=== PATIENT | male | born 1945 | race Caucasian/White ===

== ENCOUNTER 2017-09-28 11:50 | Day surgery (SDC) | payer OTHER, BC ==
--- OUTSIDE RECORDS SUMMARY | 2017-09-28 12:02 | XMS REPORT | Clinical Summary ---
:1945 Author Organization [facility] Address [address] [place] [address] Care Team Providers Name Role Phone Augusto Mcleod MD Primary Care Provider Allergies No Known Allergies Current Medications Prescription Sig. Disp. Refills Start Date End Date Status telmisartan-hydrochlor Take 1 tablet by 1 12/26/2016 Active othiazid (MICARDIS mouth once daily. HCT) 80-12.5 mg per tablet amLODIPine (NORVASC) Take 10 mg by mouth Active 10 mg tablet daily. metFORMIN (GLUCOPHAGE) Take 1,000 mg by Active 1,000 mg tablet mouth 2 (two) times a day with meals. lansoprazole Take 15 mg by mouth Active (PREVACID) 15 MG daily. capsule NAPROXEN SODIUM (ALEVE Take by mouth. Active ORAL) taurine 1,000 mg Take by mouth. Active capsule multivitamin Take 1 tablet by Active (THERAGRAN) tablet mouth daily. cetirizine (ZyrTEC) 10 Take 10 mg by mouth Active MG tablet daily. simvastatin (ZOCOR) 20 Take 1 tablet (20 30 tablet 6 01/13/2017 Active MG tabletIndications: mg total) by mouth Essential nightly. hypertension, Coronary arteriosclerosis amLODIPine (NORVASC) 5 Take 5 mg by mouth 0 06/07/2017 Active mg tablet daily. bacitracin ophthalmic APPLY TO THE 0 06/23/2017 Active ointment AFFECTED EYELIDS TOPICALLY AT BEDTIME DIRECTED FOR ONE WEEK VICTOZA 3-BRICE 0.6 INJECT 1.8 MG 3 05/26/2017 Active mg/0.1 mL (18 mg/3 mL) SUBCUTANEOUSLY pen injector EVERY DAY DIRECTED irbesartan-hydrochloro Take 1 tablet by 1 08/28/2017 Active thiazide (AVALIDE) mouth daily. 300-12.5 mg per tablet Active Problems Problem Noted Date Stented coronary artery 01/13/2017 Coronary arteriosclerosis 01/13/2017 Essential hypertension 01/13/2017 Claudication 01/13/2017 Trigger ring finger of left hand 06/10/2016 Tendinitis of finger 06/10/2016 Trigger little finger of left hand 06/10/2016 Encounters Date Type Specialty Care Team Description 09/23/2017 Office Visit General Surgery Audrey Uribe Encounter for screening colonoscopy (Primary Dx); MD Edson Pruritus ani 09/15/2017 Procedure visit Urology Antonio Hill Erectile dysfunction, unspecified erectile dysfunction type 09/04/2017 Hospital Encounter Radiology Antonio Hill Orchalgia 08/31/2017 Transcribe Orders Access Antonio Hill, Orchialgia (Primary MD Dx) 08/27/2017 Lab Lab [facility] Hill, BPH with obstruction/lower urinary tract symptoms (Primary Dx); Nodular prostate with urinary obstruction 08/27/2017 Office Visit Urology Antonio Hill, BPH with obstruction/lower urinary tract symptoms (Primary Dx); Erectile dysfunction, unspecified erectile dysfunction type; Orchalgia; Polyp of colon, unspecified part of colon, unspecified type 01/13/2017 Office Visit Cardiology Milla Reardon, Claudication (Primary Dx); Essential hypertension; Coronary arteriosclerosis; Stented coronary artery after 09/27/2016 Family History Medical History Relation Name Comments Heart disease Father Hero Mao Hypertension Father Hero Mao Relation Name Status Comments Father Hero Mao Social History Tobacco Use Types Packs/Day Years Used Date Never Smoker Smokeless Tobacco: Never Used Alcohol Use Drinks/Week oz/Week Comments Yes 1 Cans of beer Sex Assigned at Date Recorded Not on file Last Filed Vital Signs Vital Sign Reading Time Taken Blood Pressure 143/67 09/23/2017 3:25 PM CDT Pulse 79 09/23/2017 3:25 PM CDT Temperature - - Respiratory Rate - - Oxygen Saturation 98% 09/23/2017 3:25 PM CDT Inhaled Oxygen Concentration - - Weight 94.8 kg (209 lb) 09/23/2017 3:25 PM CDT Height 175.3 cm (5' 9") 09/23/2017 3:25 PM CDT Body Mass Index 30.86 09/23/2017 3:25 PM CDT Plan of Treatment Date Type Specialty Care Team Description 10/22/2017 Procedure visit Urology Antonio Hill MD [address] [facility] [address] [place] [address] Health Maintenance Due Date Last Done Comments COLONOSCOPY 1996 SHINGRIX VACCINE (#1) 1996 ZOSTER VACCINE 2006 PNEUMOCOCCAL POLYSACCHARIDE VACCINE AGE 65 AND OVER 2011 PNEUMOCOCCAL-13 2011 INFLUENZA VACCINE 12/23/2017 Results Penile Duplex Scan (09/15/2017 11:16 AM) Specimen Performing Laboratory [place] [address] Narrative Penile U/S and doppler study Diagnosis:Erectile dysfunction Peyronie's plaque present on exam: absent Medication Trimix 0.25 mL. left corpus cavernosa/ time of injection 10:15 am Quality of erection @ 10 minutes 30%,@15 minutes 40%. Adequate for intercourse no Right CA diameter 5 mm. @ 10 minutes/ 7 mm. @ 15 minutes (ref: range of>7mm) Left CA diameter 7 mm@ 10 minutes / 8 mm. @ 15 minutes (ref: range of>7mm Right PSV 10 min 24.0 cm /s @ 15 minutes 22.9 cm /s (ref:>25 - 30 cm /s) Left PSV 10 min 17.6 cm /s@ 15 mint 19.7cm /s (ref:>25 - 30cm /s) RightResistive index65%(reference range of greater 90%) Left Resistive index76% (reference range of greater 90%) Right CA pulsatile yes Left CA pulsatile yes Parameters within reference range: no Systolic velocities below reference range on Bilateral Resistive indices below reference range onBilateral Persistent diastolic flowBilateral Cavernosal dilatation normal reference range on Bilateral Rigidity after injection: Rigidity 10 minutes after injection :none Rigidity 15 minutes after injectiongrade 1 Rigidity after stimulation: : grade 1 Comments: Bilateral venous leak , bilateral arterial insufficiency and very small multi focal calcification of Right corpus cavernosa is identified No curvature is identified . US Scrotal (09/04/2017 3:00 PM) Specimen Performing Laboratory [facility] [address] [place] [address] Narrative EXAMINATION: US SCROTAL CLINICAL HISTORY: N50.819 Testicular painunspecified, orchalgia COMPARISON: None. TECHNIQUE: Multiple grayscale, color Doppler and spectral Doppler sonographic images were obtained of the scrotum and its contents. FINDINGS: The testes are normal in size, shape and echotexture, with the right measuring 3.8 x 1.9 x 5.5 cm, and the left, 4.9 x 2.2 x 3.8 cm. Blood flow is symmetrical. 2 cysts are in the right epididymis, the larger, 12-18 mm. Minimal focal calcification is in the posterior scrotal wall, adjacent to the testis. IMPRESSION: Examination is within normal limits.. [id number] Procedure Note Interface, Radiology Results Incoming - 09/07/2017 10:57 AM CDT EXAMINATION: US SCROTAL CLINICAL HISTORY: N50.819 Testicular pain unspecified, orchalgia COMPARISON: None. TECHNIQUE: Multiple grayscale, color Doppler and spectral Doppler sonographic images were obtained of the scrotum and its contents. FINDINGS: The testes are normal in size, shape and echotexture, with the right measuring 3.8 x 1.9 x 5.5 cm, and the left, 4.9 x 2.2 x 3.8 cm. Blood flow is symmetrical. 2 cysts are in the right epididymis, the larger, 12-18 mm. Minimal focal calcification is in the posterior scrotal wall, adjacent to the testis. IMPRESSION: Examination is within normal limits.. [id number] CBC with platelet and differential (08/27/2017 10:48 AM) Component Value Ref Range WBC 5.5 3.4 - 10.8 x10E3/uL RBC 4.24 4.14 - 5.80 x10E6/uL HGB 13.5 13.0 - 17.7 g/dL HCT 38.0 37.5 - 51.0 % MCV 90 79 - 97 fL MCH 31.8 26.6 - 33.0 pg MCHC 35.5 31.5 - 35.7 g/dL RDW 15.1 12.3 - 15.4 % Platelet count 190 150 - 379 x10E3/uL Neutrophils 59 Not Estab. % Lymphocytes 33 Not Estab. % Monocytes 4 Not Estab. % Eosinophils 3 Not Estab. % Basophils 1 Not Estab. % Neutrophils, absolute 3.2 1.4 - 7.0 x10E3/uL Lymphocytes, absolute 1.8 0.7 - 3.1 x10E3/uL Monocytes, absolute 0.2 0.1 - 0.9 x10E3/uL Eosinophils, absolute 0.2 0.0 - 0.4 x10E3/uL Basophils, absolute 0.0 0.0 - 0.2 x10E3/uL Immature granulocytes 0 Not Estab. % Immature grans (abs) 0.0 0.0 - 0.1 x10E3/uL Specimen Performing Laboratory [facility] Narrative Performed at:[address] [place], [place] [id number] Application Integration Specialist: Adolph Walker MD, Phone:[phone] Testosterone (08/27/2017 10:48 AM) Component Value Ref Range Testosterone 211 (L) 264 - 916 ng/dL Comment: Adult male reference interval is based on a population of healthy nonobese males (BMI <30) between 19 and 39 years old. Claudia et.al. JCEM 2017,102;6553-5781. PMID: [id number]. Specimen Performing Laboratory [facility] Narrative Performed at:[address] [place], [place] [id number] Application Integration Specialist: Adolph Walker MD, Phone:[phone] Prostate specific antigen (08/27/2017 10:48 AM) Component Value Ref Range PSA 1.1 0.0 - 4.0 ng/mL Comment: Lois ECLIA methodology. According to the [place] [employer], Serum PSA should decrease and remain at undetectable levels after radical prostatectomy. The AUA defines biochemical recurrence as an initial PSA value 0.2 ng/mL or greater followed by a subsequent confirmatory PSA value 0.2 ng/mL or greater. Values obtained with different assay methods or kits cannot be used interchangeably. Results cannot be interpreted as absolute evidence of the presence or absence of malignant disease. Specimen Performing Laboratory [facility] Narrative Performed at:[address] [place], [place] [id number] Application Integration Specialist: Adolph Walker MD, Phone:[phone] Pv duplex arterial lower extremity (02/05/2017 3:07 PM) Specimen Performing Laboratory [facility] [address] [place] [address] Narrative [facility] Lower Extremity Arterial Report Pat.Name:Jean Pierre MAO.ID:[id number] .Date: 02/05/2017 Refer.MD:MILLA REARDON MD Exam Time: 2:22:00 PMStudy Type:LE Arterial DOBAge:1945,71YSex: MALE Sonogrphr: Jeimy Manuel, MARI, RDCS, RVT Pat. Stat.:Outpatient Room:[place] [address]: [id number] Echo Event ID:[id number] Order ID:[id number] Reason for Study:Weak pulse Race:C SUMMARY: Duplex scan of the BILATERAL lower extremities demonstrates no evidence of hemodynamically significant stenosis. Doppler flow is triphasic. There is no evidence of atherosclerotic plaque. FINDINGS:Duplex ultrasound was performed of the major arteries of the bilateral lower extremities.All vessels are patent and with triphasic Doppler flow and normal velocities.There are no areas of significantly increased velocity or luminal abnormalities. IMPRESSION:No evidence of hemodynamically significant arterial disease in thebilateral lower extremities. Doppler Waveforms: RightLeft Common Fem TriphasicTriphasic Superficial FemTriphasicTriphasic PoplitealTriphasic Triphasic Posterior Tibial TriphasicTriphasic Dorsalis Pedis TriphasicTriphasic Anterior TibialTriphasicTriphasic MEASUREMENTS: DOPPLER SENIOR PRODUCT CONSULTANT Right SENIOR PRODUCT CONSULTANT Angul60 deg Right Profunda Profunda PSV84.2 cm/sProfunda EDV 0 cm /s Profunda Right Profunda 60 deg Right SFA Dist SFA Dist PSV 101 cm/sSFA Dist EDV 0 cm /s Right SFA Mid SFA Mid PSV 97.9 cm/sSFA Mid EDV0 cm/s Right SFA Prox SFA Prox PSV99.6 cm/sSFA Prox EDV 0 cm /s Right Pop Dist Pop Dist PSV77.9 cm/sPop Dist EDV 0 cm /s Right Pop Prox Pop Prox PSV78.3 cm/sPop Prox EDV 0 cm /s Right WINDOWS SERVER SUPPORT TECHNICIAN Prox WINDOWS SERVER SUPPORT TECHNICIAN Prox PSV51.1 cm/sPTA Prox PSV72 cm /s WINDOWS SERVER SUPPORT TECHNICIAN Prox EDV2.13 cm/s Right WINDOWS SERVER SUPPORT TECHNICIAN Dist WINDOWS SERVER SUPPORT TECHNICIAN Dist PSV62.7 cm/s Right WINDOWS SERVER SUPPORT TECHNICIAN Mid WINDOWS SERVER SUPPORT TECHNICIAN Mid PSV 75 cm/sPTA Mid EDV 0 cm/s Right Peroneal Prox Peroneal Prox P 131 cm/s Right DPA DPA PSV 67.4 cm/s Left Profunda Profunda PSV62.7 cm/sProfunda EDV 0 cm /s Left SFA Dist SFA Dist PSV 116 cm/sSFA Dist EDV 0 cm /s Left SFA Mid SFA Mid TON698 cm/sSFA Mid EDV 0 cm/s Left SFA Prox SFA Prox PSV90.5 cm/sSFA Prox EDV 0 cm /s Left Pop Dist Pop Dist PSV70.2 cm/s Popliteal Left Popliteal 10.4 cm/s Left Popliteal0 cm/s Left Pop Prox Pop Prox PSV66.5 cm/sPop Prox PSV66 cm /s Left EDITA Prox EDITA Prox PSV44.9 cm/sATA Prox PSV44 cm /s Tibial Art Left Tibial Art 0 cm/s Left WINDOWS SERVER SUPPORT TECHNICIAN Dist WINDOWS SERVER SUPPORT TECHNICIAN Dist PSV65.5 cm/s Tibial Post Left Tibial Pos 0 cm/s Left Tibial Pos 0 cm/s Left WINDOWS SERVER SUPPORT TECHNICIAN Mid WINDOWS SERVER SUPPORT TECHNICIAN Mid PSV 76.4 cm/sPTA Mid EDV0 cm/s Left WINDOWS SERVER SUPPORT TECHNICIAN Prox WINDOWS SERVER SUPPORT TECHNICIAN Prox PSV74.6 cm/s Left Peroneal Prox Peroneal Prox P82.6 cm/s Dors Pedis Left Dors Pedis91.4 cm/s Left Dors Pedis59 deg Right SENIOR PRODUCT CONSULTANT Prox SENIOR PRODUCT CONSULTANT Prox PSV 109 cm/sCFA Prox EDV 0 cm /s Right EIA Dist EIA Dist PSV 108 cm/sEIA Dist EDV 0 cm /s Right EDITA Prox EDITA Prox PSV51 cm/s Left EIA Dist EIA Dist PSV89 cm/sEIA Dist EDV 0 cm/s EIA Dist PSV89 cm/s Left SENIOR PRODUCT CONSULTANT Prox SENIOR PRODUCT CONSULTANT Prox PSV93 cm/sCFA Prox EDV 0 cm/s Left DPA DPA PSV 91 cm/s Signed 02/08/2017 10:08 AM Milla Reardon MD Procedure Note Interface, Radiology Results In - 02/08/2017 10:08 AM CDT [facility] Lower Extremity Arterial Report Pat.Name: PHUC MAO Pat.ID: [id number] .Date: 02/05/2017 Refer.MD: MILLA REARDON MD Exam Time: 2:22:00 PM Study Type:LE Arterial Age: 11 1945,71Y Sex: MALE Sonogrphr: Jeimy Manuel RDMS, RDCS, RVT Pat. Stat.:Outpatient Room: [facility] 4: [id number] Echo Event ID:[id number] Order ID: [id number] Reason for Study:Weak pulse Race: C SUMMARY: Duplex scan of the BILATERAL lower extremities demonstrates no evidence of hemodynamically significant stenosis. Doppler flow is triphasic. There is no evidence of atherosclerotic plaque. FINDINGS: Duplex ultrasound was performed of the major arteries of the bilateral lower extremities. All vessels are patent and with triphasic Doppler flow and normal velocities. There are no areas of significantly increased velocity or luminal abnormalities. IMPRESSION: No evidence of hemodynamically significant arterial disease in the bilateral lower extremities. Doppler Waveforms: Right Left Common Fem Triphasic Triphasic Superficial Fem Triphasic Triphasic Popliteal Triphasic Triphasic Posterior Tibial Triphasic Triphasic Dorsalis Pedis Triphasic Triphasic Anterior Tibial Triphasic Triphasic MEASUREMENTS: DOPPLER SENIOR PRODUCT CONSULTANT Right SENIOR PRODUCT CONSULTANT Angul 60 deg Right Profunda Profunda PSV 84.2 cm/s Profunda EDV 0 cm/s Profunda Right Profunda 60 deg Right SFA Dist SFA Dist PSV 101 cm/s SFA Dist EDV 0 cm/s Right SFA Mid SFA Mid PSV 97.9 cm/s SFA Mid EDV 0 cm/s Right SFA Prox SFA Prox PSV 99.6 cm/s SFA Prox EDV 0 cm/s Right Pop Dist Pop Dist PSV 77.9 cm/s Pop Dist EDV 0 cm/s Right Pop Prox Pop Prox PSV 78.3 cm/s Pop Prox EDV 0 cm/s Right WINDOWS SERVER SUPPORT TECHNICIAN Prox WINDOWS SERVER SUPPORT TECHNICIAN Prox PSV 51.1 cm/s WINDOWS SERVER SUPPORT TECHNICIAN Prox PSV 72 cm/s WINDOWS SERVER SUPPORT TECHNICIAN Prox EDV 2.13 cm/s Right WINDOWS SERVER SUPPORT TECHNICIAN Dist WINDOWS SERVER SUPPORT TECHNICIAN Dist PSV 62.7 cm/s Right WINDOWS SERVER SUPPORT TECHNICIAN Mid WINDOWS SERVER SUPPORT TECHNICIAN Mid PSV 75 cm/s WINDOWS SERVER SUPPORT TECHNICIAN Mid EDV 0 cm/s Right Peroneal Prox Peroneal Prox P 131 cm/s Right DPA DPA PSV 67.4 cm/s Left Profunda Profunda PSV 62.7 cm/s Profunda EDV 0 cm/s Left SFA Dist SFA Dist PSV 116 cm/s SFA Dist EDV 0 cm/s Left SFA Mid SFA Mid PSV 103 cm/s SFA Mid EDV 0 cm/s Left SFA Prox SFA Prox PSV 90.5 cm/s SFA Prox EDV 0 cm/s Left Pop Dist Pop Dist PSV 70.2 cm/s Popliteal Left Popliteal 10.4 cm/s Left Popliteal 0 cm/s Left Pop Prox Pop Prox PSV 66.5 cm/s Pop Prox PSV 66 cm/s Left EDITA Prox EDITA Prox PSV 44.9 cm/s EDITA Prox PSV 44 cm/s Tibial Art Left Tibial Art 0 cm/s Left WINDOWS SERVER SUPPORT TECHNICIAN Dist WINDOWS SERVER SUPPORT TECHNICIAN Dist PSV 65.5 cm/s Tibial Post Left Tibial Pos 0 cm/s Left Tibial Pos 0 cm/s Left WINDOWS SERVER SUPPORT TECHNICIAN Mid WINDOWS SERVER SUPPORT TECHNICIAN Mid PSV 76.4 cm/s WINDOWS SERVER SUPPORT TECHNICIAN Mid EDV 0 cm/s Left WINDOWS SERVER SUPPORT TECHNICIAN Prox WINDOWS SERVER SUPPORT TECHNICIAN Prox PSV 74.6 cm/s Left Peroneal Prox Peroneal Prox P 82.6 cm/s Dors Pedis Left Dors Pedis 91.4 cm/s Left Dors Pedis 59 deg Right SENIOR PRODUCT CONSULTANT Prox SENIOR PRODUCT CONSULTANT Prox PSV 109 cm/s SENIOR PRODUCT CONSULTANT Prox EDV 0 cm/s Right EIA Dist EIA Dist PSV 108 cm/s EIA Dist EDV 0 cm/s Right EDITA Prox EDITA Prox PSV 51 cm/s Left EIA Dist EIA Dist PSV 89 cm/s EIA Dist EDV 0 cm/s EIA Dist PSV 89 cm/s Left SENIOR PRODUCT CONSULTANT Prox SENIOR PRODUCT CONSULTANT Prox PSV 93 cm/s SENIOR PRODUCT CONSULTANT Prox EDV 0 cm/s Left DPA DPA PSV 91 cm/s Signed 02/08/2017 10:08 AM Milla Reardon MD ECG 12 lead (01/13/2017 9:13 AM) Component Value Ref Range Ventricular rate 65 Atrial rate 65 IN interval 224 QRSD interval 98 QT interval 426 QTC interval 443 P axis 1 59 QRS axis 1 30 T wave axis 42 EKG impression Sinus rhythm with 1st degree AV block-Otherwise normal ECG-No previous ECGs available- Specimen Performing Laboratory [facility] [address] [place] [address] after 09/27/2016 Insurance Payer Benefit Plan / Group Subscriber ID Type Phone Address MEDICARE MEDICARE PART A AND B xxxxxxxxxx Medicare [place], [place] BCBS BCBS CHOICE PPO/[employer] PPO xxxxxxxxxxxx PPO Home: [address] [phone] [place] [id number]
[2017-09-28] MEDS ORDERED: BUPIVACAINE 0.25% PF 10 ML VIAL ONE (12:06)
[2017-09-28] MEDS ORDERED: NA CHLORIDE 0.9% 500 ML ONE (12:06)
[2017-09-28] MEDS ORDERED: PHENYLEPHRINE 10% OPTH 5ML ONE (12:13)
[2017-09-28] MEDS: TETRACAINE HCL 0.5% 2ML OPTH ONE ×4 (12:20→13:23)
[2017-09-28] MEDS: CYCLOPENTOLATE 1% OPTH 2 ML ONE ×3 (12:25→12:35)
[2017-09-28] MEDS ORDERED: PROPOFOL 200 MG/20 ML VIAL IV ONE (12:58)
[2017-09-28] MEDS ORDERED: LIDOCAINE 1% MPF 2 ML AMPULE ONE (13:00)
[2017-09-28] MEDS ORDERED: NS 0.9% VIAL 10 ML ONE (13:29)
[2017-09-28] MEDS ORDERED: BALANCED SALT IRRIG PLAIN 500 ML BTL IRR ONE (13:29)
[2017-09-28] MEDS ORDERED: EPINEPHRINE/PF 1 MG/ML AMP ONE (13:29)
[2017-09-28] MEDS ORDERED: MOXIFLOXACIN HCL 10 DROPS/ML **OR USE OPTH ONE (13:30)
[2017-09-28] MEDS ORDERED: DUOVISC 1 KIT OPTH ONE (13:30)
--- NOTE | 2017-09-28 14:16 | P.BOP ---
Preoperative diagnosis: Nuclear sclerotic, cortical and posterior subcapsular cataract OS Postoperative diagnosis: Same Primary procedure: Phacoemulsification with IOL OS Estimated blood loss: None Anesthesia: Local (Subtenon's infusion with anesthesia for cataract surgery) Complications: None Implants: [id number] +19.0 Transferred to: Other (Day surgery) Condition: Good
[2017-09-28 15:13] VITALS: BP 146/70; TEMP 97.2; O2SAT 98
--- NOTE | 2017-09-28 21:35 | OP ---
Surgeon: Elda Devi MD Anesthesiologist: Edel Davey CRNA, and Doroteo Mchugh M.D. Preoperative Diagnoses: Nuclear sclerotic cataract, cortical cataract, and posterior subcapsular cat aract, OS (left eye). Operation Performed: Phacoemulsification with intraocular lens implant, OS (left eye). Anesthesia: Per cataract surgery. Complications: None. Description Of Procedure: In day surgery, the patient was prepped with Betadine and draped. A conju nctival incision was made in the inferior nasal quadrant with Elier scissors. A sub-Tenon block c onsisting of a 1:1 mixture of 2% Xylocaine and 0.25% bupivacaine was placed through the conjunctival incision with a blunt cannula. A Honan balloon was placed over the eye and the patient was transferr ed to the operating room. In the operating room the patient was prepped and draped in the usual sterile fashion for ophthalmic surgery. A lid speculum was placed in the left eye. Two paracentesis sites were made superiorly and inferiorly in the limbal cornea. Viscoat was placed in the anterior chamber and a crescent blade wa s used to make a corneal groove and tunnel, and a keratome was used to enter the anterior chamber. P rovisc was placed in the anterior chamber and a 360 degree capsulotomy was performed with a cystitome . The lens was hydrodissected with BSS and rotated freely. The lens was removed with a stop and cho p technique. A 6.13 phaco CDE was used to remove the lens. Residual cortex was removed with the irr igation and aspiration. Provisc was placed in the capsular bag. A ZCB00 +19.0 diopter lens was plac ed in the capsular bag without complications. Irrigation and aspiration were used to remove residual viscoelastic. The paracentesis sites were hydrated with BSS. The wound and paracentesis sites were inspected and found to be watertight. Vigamox 0.07 cc was placed intracamerally at the end of the p rocedure. The eye was irrigated with balanced salt solution. The eye was patched with a soft cotton patch and Lim metal shield. The patient was returned to day surgery in good condition. Discharge Instructions: Mr. Chambers is discharged to home in good condition and is to follow up with Dr. Devi in the morning. JHL/MODL Voice ID: [id number] Report ID: [id number]
== END 2017-09-28 14:40 | disposition home or self-care (01) ==
LOC: OR 11:50
PROVIDERS: ATTEND Ophthalmology Retina Specialist
PROC: 08RK3JZ Replacement of Left Lens with Synthetic Substitute, Percutaneous Approach (ICD-10-PCS; principal; 2017-09-28 11:45)
DX: H25.12 Age-related nuclear cataract, left eye (principal); H25.012 Cortical age-related cataract, left eye; H25.042 Posterior subcapsular polar age-related cataract, left eye; E11.319 Type 2 diabetes mellitus with unspecified diabetic retinopathy without macular edema; I10 Essential (primary) hypertension; G47.33 Obstructive sleep apnea (adult) (pediatric); I25.10 Atherosclerotic heart disease of native coronary artery without angina pectoris; K21.9 Gastro-esophageal reflux disease without esophagitis; Z88.3 Allergy status to other anti-infective agents; Z88.8 Allergy status to other drugs, medicaments and biological substances; Z79.82 Long term (current) use of aspirin; Z82.3 Family history of stroke; Z83.3 Family history of diabetes mellitus
CPT/HCPCS: 66984; 82962; J0171; J2001

== ENCOUNTER 2018-10-11 07:28 | Day surgery (SDC) | payer OTHER, BC ==
--- OUTSIDE RECORDS SUMMARY | 2018-10-11 07:33 | XMS REPORT | Clinical Summary ---
:1945 Author Organization [facility] Address [address] [place] [address] Care Team Providers Name Role Phone Augusto Mcleod MD Primary Care Provider Allergies Active Allergy Reactions Severity Noted Date Comments Ciprofloxacin Swelling 06/09/2018 Medications Medication Sig Dispensed Refills Start End Status Date Date amLODIPine (NORVASC) Take 10 mg by 0 Active 10 mg tablet mouth daily. metFORMIN Take 1,000 mg by 0 Active (GLUCOPHAGE) 1,000 mouth 2 (two) mg tablet times a day with meals. lansoprazole Take 15 mg by 0 Active (PREVACID) 15 MG mouth daily. capsule NAPROXEN SODIUM Take by mouth. 0 Active (ALEVE ORAL) taurine 1,000 mg Take by mouth. 0 Active capsule multivitamin Take 1 tablet by 0 Active (THERAGRAN) tablet mouth daily. cetirizine (ZyrTEC) Take 10 mg by 0 Active 10 MG tablet mouth daily. bacitracin APPLY TO THE 0 06/23/19 Active ophthalmic ointment AFFECTED EYELIDS 18 TOPICALLY AT BEDTIME DIRECTED FOR ONE WEEK VICTOZA 3-BRICE 0.6 INJECT 1.8 MG 3 05/26/19 Active mg/0.1 mL (18 mg/3 SUBCUTANEOUSLY 18 mL) pen injector EVERY DAY DIRECTED irbesartan-hydrochlo Take 1 tablet by 1 08/29/19 Active rothiazide (AVALIDE) mouth daily. 18 300-12.5 mg per tablet GLUTATHIONE MISC 0 Active KRILL OIL ORAL Take by mouth. 0 Active aspirin (ECOTRIN) 81 Take 81 mg by 0 Active MG enteric coated mouth daily. tablet ALPHA LIPOIC ACID Take by mouth. 0 Active ORAL cholecalciferol, Take by mouth. 0 Active vitamin D3, (VITAMIN D3) 5,000 unit tablet cyanocobalamin, Inject as 0 Active vitamin B-12, directed. (VITAMIN B-12 INJ) fenofibrate (TRICOR) Take 1 tablet (145 90 tablet 3 10/05/19 Active 145 MG mg total) by mouth 19 020 tabletIndications: daily. 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) telmisartan-hydrochl Take 1 tablet by 1 12/27/19 Discontinued orothiazid (MICARDIS mouth once daily. 17 019 HCT) 80-12.5 mg per tablet simvastatin (ZOCOR) Take 1 tablet (20 30 tablet 6 01/14/20 Discontinued 20 MG mg total) by mouth 17 019 tabletIndications: nightly. Essential hypertension, Coronary arteriosclerosis amLODIPine (NORVASC) Take 5 mg by mouth 0 06/07/19 Discontinued 5 mg tablet daily. 18 019 valACYclovir Take 1 tablet 14 tablet 0 12/20/19 (VALTREX) 1000 MG (1,000 mg total) 18 018 tablet by mouth 2 (two) times a day for 7 days. predniSONE Take 5 tablets (50 150 tablet 0 12/20/19 (DELTASONE) 10 mg mg total) by mouth 18 018 tablet daily for 30 days. sodium,potassium,mag As directed 354 mL 0 06/09/19 Discontinued sulfates (SUPREP 019 BOWEL PREP KIT) 17.5-3.13-1.6 gram recon soln sodium,potassium,mag Take 1 Bottle by 2 Bottle 0 06/16/19 sulfates (SUPREP mouth once for 1 019 BOWEL PREP KIT) dose. 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, unspecified vessel or lesion type (HCC) (Primary Dx); Stented coronary artery; High triglycerides 08/17/2018 Telephone Gastroenterology Graciela Villegas MA 07/12/2018 Lab Lab Augusto Carmichael MD 07/12/2018 Documentation Gastroenterology Augusto Carmichael Colonoscopy MD Kirstin 07/09/2018 Telephone Gastroenterology Graciela Villegas MA 06/22/2018 Telephone Gastroenterology Graciela Villegas MA 06/16/2018 Refill Gastroenterology Graciela Villegas MA 06/11/2018 Telephone Gastroenterology Augusto Carmichael MD 06/09/2018 Office Visit Gastroenterology Augusto Carmichael Gastroesophageal reflux disease, esophagitis presence not specified (Primary Dx); MD Kirstin History of colon polyps 03/03/2018 Telephone Gastroenterology Augusto Carmichael MD 01/08/2018 Office Visit Neurology Emily San MD Lopez's palsy (Primary Dx); 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 Emergency Emergency Medicine Berny Mathias Lopez's palsy ( Primary Dx) MD Joce 11/10/2017 Telephone General Surgery Audrey Uribe MD after 10/10/2017 Family History Medical History Relation Name Comments Heart disease Father Hero Chambers Hypertension Father Hero Chambers Relation Name Status Comments Father Hero Chambers Social History Tobacco Use Types Packs/Day Years Used Date Never Smoker Smokeless Tobacco: Never Used Tobacco Cessation: Counseling Given: No Alcohol Use Drinks/Week oz/Week Comments Yes 1 Cans of beer Sex Assigned at Date Recorded Male 10/04/2018 11:51 AM CDT Job Start Date Occupation Industry Not on file Not on file Not on file Travel History Travel Start Travel End No recent travel history available. Last Filed Vital Signs Vital Sign Reading Time Taken Blood Pressure 147/73 10/04/2018 3:51 PM CDT Pulse 71 10/04/2018 3:51 PM CDT Temperature 36.4 C (97.5 F) 06/09/2018 3:14 PM CERTIFIED CYTOTECHNOLOGIST Respiratory Rate 16 06/09/2018 3:14 PM CERTIFIED CYTOTECHNOLOGIST Oxygen Saturation 95% 12/19/2017 9:45 PM CDT Inhaled Oxygen Concentration - - Weight 95.7 kg (211 lb) 10/04/2018 3:51 PM CDT Height 175.3 cm (5' 9") 10/04/2018 3:51 PM CDT Body Mass Index 31.16 10/04/2018 3:51 PM CDT Plan of Treatment Date Type Specialty Care Team Description 04/08/2019 Office Visit Cardiology Ky Young MD [address] [facility] [address] [place] [id number] Health Maintenance Due Date Last Done Comments COLON CANCER SCREENING 1996 SHINGLES VACCINES (#1) 1996 65+ PNEUMOCOCCAL VACCINE (1 of 2 - PCV13) 2011 PNEUMOCOCCAL POLYSACCHARIDE VACCINE AGE 65 AND OVER 2011 INFLUENZA VACCINE 12/23/2018 04/19/2012 Procedures Procedure Name Priority Date/Time Associated Comments Diagnosis GENERAL SURGERY Routine 10/05/2018 ECG 12-LEAD Routine 10/04/2018 3:54 Stented coronary Results for this PM CDT artery procedure are in the results section. SURGICAL PATHOLOGY Routine 07/12/2018 9:53 Results for this REQUEST AM CERTIFIED CYTOTECHNOLOGIST procedure are in the results section. MRI BRAIN W WO CONTRAST Routine 01/13/2018 4:08 Lopez's palsy Results for this PM CDT Hemifacial spasm procedure are in the results section. ZZESTIMATED GFR STAT 12/19/2017 8:55 Results for this PM CDT procedure are in the results section. B NATRIURETIC PEPTIDE STAT 12/19/2017 8:55 Results for this PM CDT procedure are in the results section. TROPONIN STAT 12/19/2017 8:55 Results for this PM CDT procedure are in the results section. COMPREHENSIVE METABOLIC STAT 12/19/2017 8:55 Results for this PANEL PM CDT procedure are in the results section. PARTIAL THROMBOPLASTIN STAT 12/19/2017 8:55 Results for this TIME (PTT) PM CDT procedure are in the results section. PROTHROMBIN TIME WITH STAT 12/19/2017 8:55 Results for this INR PM CDT procedure are in the results section. HC COMPLETE BLD COUNT STAT 12/19/2017 8:55 Results for this W/AUTO DIFF PM CDT procedure are in the results section. ECG ED PRELIMINARY Routine 12/19/2017 8:49 Results for this INTERPRETATION PM CDT procedure are in the results section. ECG 12-LEAD STAT 12/19/2017 8:38 Results for this PM CDT procedure are in the results section. CT STROKE BRAIN WO STAT 12/19/2017 8:36 Results for this CONTRAST PM CDT procedure are in the results section. after 10/10/2017 Results General surgery (10/05/2018) Narrative Performed At ECG 12 lead (10/04/2018 3:54 PM CDT)Only the most recent of2 resultswithin the time period is included. Ventricular rate 71 [facility] Atrial rate 71 [facility] TN interval 188 [facility] QRSD interval 98 [facility] QT interval 410 [facility] QTC interval 445 [facility] P axis 1 47 [facility] QRS axis 1 -4 [facility] MUSE T wave axis [address] [facility] MUSE EKG impression Normal sinus [facility] MUSE rhythm-Incomplete right bundle branch block-Borderline ECG-In automated comparison with ECG of 19-DEC-2017 20:38,-No significant change was found- Specimen Narrative Performed At Performing Organization Address City/State/Zipcode Phone Number [facility] [address] [place] [address] Surgical pathology request (07/12/2018 9:53 AM CERTIFIED CYTOTECHNOLOGIST) [facility] DEPARTMENT OF PATHOLOGY AND GENOMIC MEDICINE Surgical pathology See link below [facility] DEPARTMENT OF report for PDF Lab PATHOLOGY AND Report GENOMIC MEDICINE Result status This is Final [facility] DEPARTMENT OF Report for PATHOLOGY AND [id number] GENOMIC MEDICINE Specimen Performing Organization Address City/State/Zipcode Phone Number 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 TECHNIQUE:Multiplanar multisequence images were obtained through the brain without and after administration of intravenous contrast. CONTRAST: Gadavist 9.3 cc FINDINGS: Ventricles, sulci and CSF-containing spaces are normal size and configuration for the patient's age. Foci of increased signal intensity on T2 and FLAIR sequences are seen within the supratentorial white matter. No other macrostructural abnormalities are noted in the cerebral hemispheres, basal ganglia, brainstem or cerebellum. There is no enhancing intracranial abnormality. There is no diffusion signal abnormality to suggest acute ischemia.There is no evidence of hemorrhage, focal mass, mass effect or extra-axial collection.The major arteries and dural sinuses are patent. Although this examination is not optimized for the sella, pituitary is grossly normal in appearance. The craniovertebral junction and visualized portion of upper cord are unremarkable. Bilateral orbits are unremarkable; there is no evidence of mass of inflammatory changes seen. There is abnormal enhancement of canalicular and labyrinthine segments of right facial nerve consistent with facial neuritis (sequence 12 image 159 and 160). The visualized parts of the upper neck, skull base and face are normal. Small nonobstructive mucus retention cysts are seen within the floor of the maxillary sinuses. IMPRESSION: 1. There is abnormal enhancement of canalicular and labyrinthine segments of right facial nerve consistent with neuritis. 2. Negative for intracranial mass, hemorrhage, extra-axial fluid collection or hydrocephalus. 3. Foci of increased signal intensity on T2 and FLAIR seen within the supratentorial white matter. This is a nonspecific findings most likely represents chronic microvascular ischemic changes. 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 TECHNIQUE: Multiplanar multisequence images were obtained through the brain without and after administration of intravenous contrast. CONTRAST: Gadavist 9.3 cc FINDINGS: Ventricles, sulci and CSF-containing spaces are normal size and configuration for the patient's age. Foci of increased signal intensity on T2 and FLAIR sequences are seen within the supratentorial white matter. No other macrostructural abnormalities are noted in the cerebral hemispheres, basal ganglia, brainstem or cerebellum. There is no enhancing intracranial abnormality. There is no diffusion signal abnormality to suggest acute ischemia. There is no evidence of hemorrhage, focal mass, mass effect or extra-axial collection. The major arteries and dural sinuses are patent. Although this examination is not optimized for the sella, pituitary is grossly normal in appearance. The craniovertebral junction and visualized portion of upper cord are unremarkable. Bilateral orbits are unremarkable; there is no evidence of mass of inflammatory changes seen. There is abnormal enhancement of canalicular and labyrinthine segments of right facial nerve consistent with facial neuritis (sequence 12 image 159 and 160). The visualized parts of the upper neck, skull base and face are normal. Small nonobstructive mucus retention cysts are seen within the floor of the maxillary sinuses. IMPRESSION: 1. There is abnormal enhancement of canalicular and labyrinthine segments of right facial nerve consistent with neuritis. 2. Negative for intracranial mass, hemorrhage, extra-axial fluid collection or hydrocephalus. 3. Foci of increased signal intensity on T2 and FLAIR seen within the supratentorial white matter. This is a nonspecific findings most likely represents chronic microvascular ischemic changes. [facility]-[id number] Performing Organization Address City/[facility] Phone Number [facility] [address] [place] [address] Estimated GFR (12/19/2017 8:55 PM CDT) Pathologist [facility] GFR Non Af Amer 66 mL/min/1.[address] [facility] DEPARTMENT OF m2 PATHOLOGY AND GENOMIC MEDICINE GFR Af Amer 80 mL/min/1.[address] [facility] DEPARTMENT OF Comment: m2 PATHOLOGY AND Chronic kidney disease: <60 mL/min/1.73m2 GENOMIC MEDICINE Kidney failure: <15 mL/min/1.73m2 The estimated GFR is calculated from the IDMS-traceable Modification of Diet in Renal Disease Equation. The accuracy of the calculation is poor when the creatinine is normal. Calculated values >90 mL/min/1.73m2 are not reported. This equation has not been validated in children (<18 years), women, the elderly (>70 years), or ethnic groups other than Caucasians and Americans. Specimen Plasma specimen Performing Organization Address City/[facility]/Zipcode Phone Number [facility] DEPARTMENT OF PATHOLOGY AND [address] [place] [address] [facility] Troponin (12/19/2017 8:55 PM CDT) Pathologist [facility] Troponin <0.30 0.00 - 0.[address] [facility] DEPARTMENT OF Comment: ng/mL PATHOLOGY AND 0.30 - 1.49 ng/mlMay indicate increased risk of acute GENOMIC MEDICINE coronary syndrome. >=1.5 ng/mlConsistent with acute myocardial infarction. The diagnostic value of a single normal or non-diagnostic result is questionable.Serial samples at 2-6 hour intervals are required to rule out acute myocardial injury. Specimen Plasma specimen Performing Organization Address City/[facility] Phone Number [facility] DEPARTMENT OF PATHOLOGY AND [address] [place] [phone] [facility] Partial thromboplastin time, activated (12/19/2017 8:55 PM CDT) [facility] PTT 34.9 23.0 - 36.[address] [facility] DEPARTMENT OF Comment: sec PATHOLOGY AND PTT therapeutic range for unfractionated heparin is [facility] MEDICINE 61.0-112.0 seconds which corresponds to Anti-Xa 0.3-0.7 U/ml. Specimen Blood Performing Organization Address City/[facility] Phone Number [facility] DEPARTMENT OF PATHOLOGY AND [address] [place] [phone] [facility] Prothrombin time with INR (12/19/2017 8:55 PM CDT) [facility] Prothrombin time 12.9 12.0 - 15.[address] [facility] DEPARTMENT OF sec PATHOLOGY AND GENOMIC MEDICINE INR 1.[address] [facility] DEPARTMENT OF Comment: PATHOLOGY AND The International Normalized Ratio (INR) is a therapeutic GENOMIC MEDICINE monitoring tool for patients who are stable on oral anticoagulant therapy. An INR of 2.0-3.0 is suggested for deep vein thrombosis/pulmonary embolism. Specimen Blood Narrative Performed At Unable to perform testing, specimen is [facility] DEPARTMENT OF PATHOLOGY AND GENOMIC HEMOLYZED.Recollect MEDICINE requested for K,AST,ALT(tests).,SHANTAL(name/location) notified by KT1 (tech ID) at12/19/2017(date/time).Credit issued. Performing Organization Address City/[facility]/Zipcode Phone Number [facility] DEPARTMENT OF PATHOLOGY AND [address] [place] [phone] [facility] MEDICINE CBC with platelet and differential (12/19/2017 8:55 PM CDT) Pathologist [facility] WBC 6.97 4.50 - 11.[address] [facility] DEPARTMENT OF k/uL PATHOLOGY AND GENOMIC MEDICINE RBC 4.23 (L) 4.40 - 6.[address] [facility] DEPARTMENT OF m/uL PATHOLOGY AND GENOMIC MEDICINE HGB 13.6 (L) 14.0 - 18.[address] [facility] DEPARTMENT OF g/dL PATHOLOGY AND GENOMIC MEDICINE HCT 37.1 (L) 41.0 - 51.0 % [facility] DEPARTMENT OF PATHOLOGY AND GENOMIC MEDICINE MCV 87.7 82.0 - 100.[address] [facility] DEPARTMENT OF fL PATHOLOGY AND GENOMIC MEDICINE MCH 32.2 27.0 - 34.[address] [facility] DEPARTMENT OF PATHOLOGY AND GENOMIC MEDICINE MCHC 36.7 31.0 - 37.[address] [facility] DEPARTMENT OF g/dL PATHOLOGY AND GENOMIC MEDICINE RDW - SD 42.1 37.0 - 55.[address] [facility] DEPARTMENT OF fL PATHOLOGY AND GENOMIC MEDICINE MPV 11.9 8.8 - 13.[address] [facility] DEPARTMENT OF PATHOLOGY AND GENOMIC MEDICINE Platelet count 225 150 - [address] [facility] DEPARTMENT OF k/uL PATHOLOGY AND GENOMIC MEDICINE Nucleated RBC 0.00 /[address] [facility] DEPARTMENT OF PATHOLOGY AND GENOMIC MEDICINE Neutrophils 51.3 39.0 - 69.0 % [facility] DEPARTMENT OF PATHOLOGY AND GENOMIC MEDICINE Lymphocytes 32.6 25.0 - 45.0 % [facility] DEPARTMENT OF PATHOLOGY AND GENOMIC MEDICINE Monocytes 8.3 0.0 - 10.0 % [facility] DEPARTMENT OF PATHOLOGY AND GENOMIC MEDICINE Eosinophils 4.9 0.0 - 5.0 % [facility] DEPARTMENT OF PATHOLOGY AND GENOMIC MEDICINE Basophils 1.3 (H) 0.0 - 1.0 % [facility] DEPARTMENT OF PATHOLOGY AND GENOMIC MEDICINE Immature granulocytes 1.6 0.0 - 1.0 % [facility] DEPARTMENT OF (H)Comment: PATHOLOGY AND "Immature GENOMIC MEDICINE granulocytes" (promyelocytes , myelocytes, metamyelocytes ) Specimen Blood Performing Organization Address City/[facility]/Zipcode Phone Number [facility] DEPARTMENT OF PATHOLOGY AND [address] [place] [phone] [place] [address] B natriuretic peptide (12/19/2017 8:55 PM CDT) BNP 11 0 - 100 pg/mL [facility] DEPARTMENT OF PATHOLOGY AND GENOMIC MEDICINE Specimen Blood Performing Organization Address City/[facility]/Zipcode Phone Number [facility] DEPARTMENT OF PATHOLOGY AND [address] [place] [phone] [facility] MEDICINE Comprehensive metabolic panel (12/19/2017 8:55 PM CDT) Sodium 137 135 - [address] [facility] DEPARTMENT OF mEq/L PATHOLOGY AND GENOMIC MEDICINE Potassium SEE COMMENT 3.5 - 5.[address] [facility] DEPARTMENT OF Comment: mEq/L PATHOLOGY AND Footnote--------- GENOMIC MEDICINE Unable to perform testing, specimen is HEMOLYZED.Recollect requested for K,AST,ALT(tests). Chloride 100 98 - [address] [facility] DEPARTMENT OF mEq/L PATHOLOGY AND GENOMIC MEDICINE CO2 20 (L) 24 - 31 mEq/L [facility] DEPARTMENT OF PATHOLOGY AND GENOMIC MEDICINE Anion gap 17@ANIO (H) 7 - 15 mEq/L [facility] DEPARTMENT OF PATHOLOGY AND GENOMIC MEDICINE BUN 22 8 - 23 mg/dL [facility] DEPARTMENT OF PATHOLOGY AND GENOMIC MEDICINE Creatinine 1.1 0.7 - 1.[address] [facility] DEPARTMENT OF mg/dL PATHOLOGY AND GENOMIC MEDICINE Glucose 169 (H) 65 - 99 mg/dL [facility] DEPARTMENT OF PATHOLOGY AND GENOMIC MEDICINE Calcium 9.1 8.8 - 10.[address] [facility] DEPARTMENT OF mg/dL PATHOLOGY AND GENOMIC MEDICINE Protein 6.8 6.3 - 8.[address] [facility] DEPARTMENT OF Comment: g/dL PATHOLOGY AND 4.6-7.0 g/dL GENOMIC MEDICINE 1 week 4.4-7.6 g/dL 7 months-1year5.1-7.3 g/dL 1-2 years5.6-7.5 g/dL >3 years6.0-8.0 g/dL 18-150 6.3-8.3 g/dL Albumin 3.9 3.5 - 5.[address] [facility] DEPARTMENT OF g/dL PATHOLOGY AND GENOMIC MEDICINE A/G ratio 1.3 0.7 - 3.[address] [facility] DEPARTMENT OF PATHOLOGY AND GENOMIC MEDICINE Alkaline 67Comment: 40 - 129 U/L [facility] DEPARTMENT OF phosphatase Corrected result; PATHOLOGY AND previously GENOMIC MEDICINE reported as @FT on 12/19/2017 at 21:42 by KT1 AST SEE 10 - 50 U/L [facility] DEPARTMENT OF COMMENTComment: PATHOLOGY AND Footnote--------- GENOMIC MEDICINE ALT SEE 5 - 50 U/L [facility] DEPARTMENT OF COMMENTComment: PATHOLOGY AND Footnote--------- GENOMIC MEDICINE Total bilirubin 0.3 0.0 - 1.[address] [facility] DEPARTMENT OF mg/dL PATHOLOGY AND GENOMIC MEDICINE Specimen Plasma specimen Narrative Performed At Unable to perform testing, specimen is [facility] DEPARTMENT OF PATHOLOGY AND GENOMIC HEMOLYZED.Recollect MEDICINE requested for K,AST,ALT(tests).,SHANTAL(name/location) notified by KT1 (tech ID) at12/19/2017(date/time).Credit issued. Performing Organization Address City/State/Zipcode Phone Number [facility] DEPARTMENT OF PATHOLOGY AND [address] [place] [address] GENOMIC MEDICINE ECG ED Preliminary Interpretation - NOT AN ORDER (12/19/2017 8:49 PM CDT) Narrative Performed At Berny Mathias MD 12/20/2017 10:05 AM ECG ED Preliminary Interpretation - Not an Order Performed by: BERNY MATHIAS Authorized by: BERNY MATHIAS ECG reviewed by ED Physician in the absence of a rental sales representative: yes Previous ECG: Previous ECG:Unavailable Interpretation: Interpretation: non-specific Rate: ECG rate:72 ECG rate assessment: normal Rhythm: Rhythm: sinus rhythm QRS: QRS axis:Left QRS intervals:Normal ST segments: ST segments:Normal T waves: T waves: normal CT Stroke Brain Wo Contrast (12/19/2017 8:36 PM CDT) Specimen Narrative Performed At EXAMINATION:CT STROKE BRAIN WO CONTRAST RADIANT CLINICAL HISTORY:Left Facial droop onset 6 hours ago COMPARISON:None. TECHNIQUE: Noncontrast head CT performed using radiation dose reduction techniques.Technical factors are evaluated and adjusted to ensure appropriate moderation of exposure.Automated dose management technology is applied to adjust radiation exposure while achieving a diagnostic quality image. FINDINGS: No evidence of acute intracranial hemorrhage, mass, mass effect, midline shift, or acute infarct. Ventricles and sulci are normal in appearance for age.Mild arteriosclerosis of the cavernous and paraclinoid internal carotid arteries and V4 segment of the left vertebral artery which appears slightly hyperdense, likely secondary to volume averaging. Basal cisterns are clear. Calvarium is intact. Status post left lens extraction. Mild sinus inflammatory changes with polypoid mucosal thickening of the inferior maxillary sinuses. Trace bilateral mastoid effusions. Sebaceous cyst within the right suboccipital subcutaneous fat. IMPRESSION: No CT evidence of acute intracranial abnormality. Findings were discussed with and acknowledged by BERNY MATHIAS at 12/19/2017 8:43 PM. [id number] Procedure Note Hm Interface, Radiology Results Incoming - 12/19/2017 8:51 PM CDT EXAMINATION: CT STROKE BRAIN WO CONTRAST CLINICAL HISTORY: Left Facial droop onset 6 hours ago COMPARISON: None. TECHNIQUE: Noncontrast head CT performed using radiation dose reduction techniques. Technical factors are evaluated and adjusted to ensure appropriate moderation of exposure. Automated dose management technology is applied to adjust radiation exposure while achieving a diagnostic quality image. FINDINGS: No evidence of acute intracranial hemorrhage, mass, mass effect, midline shift , or acute infarct. Ventricles and sulci are normal in appearance for age. Mild arteriosclerosis of the cavernous and paraclinoid internal carotid arteries and V4 segment of the left vertebral artery which appears slightly hyperdense, likely secondary to volume averaging. Basal cisterns are clear. Calvarium is intact. Status post left lens extraction. Mild sinus inflammatory changes with polypoid mucosal thickening of the inferior maxillary sinuses. Trace bilateral mastoid effusions. Sebaceous cyst within the right suboccipital subcutaneous fat. IMPRESSION: No CT evidence of acute intracranial abnormality. Findings were discussed with and acknowledged by BERNY MATHIAS at 2017 8:43 PM. [id number] Performing Organization Address City/State/Zipcode Phone Number [facility] [address] [place] [address] after 10/10/2017 Insurance Payer Benefit Plan / Subscriber ID Effective Dates Phone Address Type Group MEDICARE MEDICARE PART A xxxxxxxxxxx 2011-Present [place], [place] Medicare AND B BCBS BCBS CHOICE xxxxxxxxxxxx 2011-Present PPO PPO/[employer] PPO Advance Directives Patient has advance care planning documents on file. For more information, please contact:[facility] [place] [address]
[2018-10-11] MEDS: NA CHLORIDE 0.9% 500 ML ONE ×2 (07:59→08:50)
[2018-10-11] MEDS ORDERED: PHENYLEPHRINE 10% OPTH 5ML OPTH ONE ×2 (08:00→08:07)
[2018-10-11] MEDS ORDERED: CYCLOPENTOLATE 1% OPTH 2 ML OPTH ONE ×2 (08:00→08:07)
[2018-10-11] MEDS ORDERED: PHENYLEPHRINE 10% OPTH 5ML ONE (08:02)
[2018-10-11] MEDS ORDERED: LIDOCAINE 2% MPF 5 ML VIAL ONE (08:03)
[2018-10-11] MEDS ORDERED: CYCLOPENTOLATE 1% OPTH 2 ML ONE (08:03)
[2018-10-11] MEDS ORDERED: BUPIVACAINE 0.25% PF 10 ML VIAL ONE (08:03)
[2018-10-11] MEDS ORDERED: TETRACAINE HCL 0.5% 4ML OPTH ONE (08:03)
[2018-10-11] MEDS ORDERED: NS 0.9% VIAL 10 ML ONE (08:09)
[2018-10-11] MEDS ORDERED: EPINEPHRINE/PF 1 MG/ML AMP ONE (08:10)
[2018-10-11 08:24] VITALS: BP 144/68; TEMP 97.5; O2SAT 95
[2018-10-11] MEDS: EPINEPHRINE/PF 1 MG/ML AMP ONE ×2 (09:18→09:27)
[2018-10-11] MEDS: BALANCED SALT IRRIG PLAIN 500 ML BTL IRR ONE ×2 (09:18→09:27)
[2018-10-11] MEDS: DUOVISC 1 KIT OPTH ONE ×2 (09:19→09:37)
[2018-10-11] MEDS: MOXIFLOXACIN HCL 10 DROPS/ML **OR USE OPTH ONE ×2 (09:19→09:38)
[2018-10-11] MEDS ORDERED: LIDOCAINE 1% MPF 5 ML VIAL ONE (09:25)
[2018-10-11] MEDS ORDERED: PROPOFOL 200 MG/20 ML VIAL IV ONE (09:25)
--- NOTE | 2018-10-11 09:50 | P.BOP ---
Preoperative diagnosis: Nuclear sclerotic and posterior subcapsular cataract OD Postoperative diagnosis: Same Primary procedure: Phacoemulsification with IOL OD Estimated blood loss: None Anesthesia: Local (Subtenon's infusion with anesthesia for cataract surgery) Complications: None Implants: ZCB00 +19.0 Transferred to: Other (Day surgery) Condition: Good
--- NOTE | 2018-10-11 20:08 | OP ---
Date of Procedure: 10/11/2018 Surgeon: Elda Devi MD Anesthesiologist: Sekou Valle CRNA Preoperative Diagnosis: Nuclear sclerotic cataract, and posterior subcapsular cataract, right eye. Operation Performed: Phacoemulsification with intraocular lens implant, right eye. Anesthesia: Per cataract surgery. Complications: None Description Of Procedure: In day surgery, the patient was prepped with Betadine and draped. A conjunctival incision was made in the inferior nasal quadrant with Elier scissors. A sub-Tenon block consisting of a 1:1 mixture of 2% Xylocaine and 0.25% bupivacaine was placed through the conjunctival incision with a blunt cannula. A Honan balloon was placed over the eye and the patient was transferred to the operating room. In the operating room the patient was prepped and draped in the usual sterile fashion for ophthalmic surgery. A lid speculum was placed in the right eye. Two paracentesis sites were made superiorly and inferiorly in the limbal cornea. Viscoat was placed in the anterior chamber and a crescent blade was used to make a corneal groove and tunnel, and a keratome was used to enter the anterior chamber. Provisc was placed in the anterior chamber and a 360 degree capsulotomy was performed with a cystitome. The lens was hydrodissected with BSS and rotated freely. The lens was removed with a stop and chop technique. 4.28 Phaco CDE was used to remove the lens. Residual cortex was removed with the irrigation and aspiration. Provisc was placed in the capsular bag. A ZCB00 +19.0 Lens was placed in the capsular bag without complications. Irrigation and aspiration was used to remove residual viscoelastic. The paracentesis sites were hydrated with BSS. The wound and paracentesis sites were inspected and found to be watertight. Vigamox 0.07 cc was placed intracamerally at the end of the procedure. The eye was irrigated with balanced salt solution. The eye was patched with a soft cotton patch and Lim metal shield. The patient was returned to day surgery in good condition. Comments: Trace residual PSC remained at the end of the procedure Discharge Instructions: [facility]/[place] Voice ID: [id number] Report ID: [id number]
== END 2018-10-11 10:14 | disposition home or self-care (01) ==
LOC: OR 07:28
PROVIDERS: ATTEND Ophthalmology Retina Specialist
PROC: 08RJ3JZ Replacement of Right Lens with Synthetic Substitute, Percutaneous Approach (ICD-10-PCS; principal; 2018-10-11 09:10)
DX: H25.11 Age-related nuclear cataract, right eye (principal); H25.041 Posterior subcapsular polar age-related cataract, right eye; E11.9 Type 2 diabetes mellitus without complications; I10 Essential (primary) hypertension; Z79.84 Long term (current) use of oral hypoglycemic drugs; Z79.82 Long term (current) use of aspirin; Z79.899 Other long term (current) drug therapy
CPT/HCPCS: 66984; 82962; J2704; J0171